=== PATIENT | female | born 1990 | race Caucasian/White ===

== ENCOUNTER 2023-03-17 07:22 | Emergency (ER) | payer BC ==
[2023-03-17] MEDS ORDERED: Sodium Chloride 0.9% 10 ML Syringe FLUSH PRN (07:55)
[2023-03-17] MEDS ORDERED: Sodium Chloride 0.9% 2.5 ML Syringe FLUSH PRN (07:55)
[2023-03-17] MEDS ORDERED: Sodium Chloride 0.9% 1,000 ML IV ONE ×2 (07:55→10:04)
[2023-03-17 08:19] LABS: BASOPHILS ABSOLUTE AUTO 0.07 K/uL (0.00-0.20); BASOPHILS PERCENT AUTO 0.5 % (0.0-1.0); EOSINOPHILS ABSOLUTE AUTO 0.59 K/uL (0.00-0.45); EOSINOPHILS PERCENT AUTO 3.9 % (0.0-6.0); HEMATOCRIT 36.5 % (37.0-47.0); HEMOGLOBIN 12.2 g/dL (12.0-16.0); IMMATURE GRAN ABSOLUTE AUTO 0.09 K/uL (0.00-0.05); IMMATURE GRAN PERCENT AUTO 0.6 % (0.0-0.4); LYMPHOCYTES ABSOLUTE AUTO 2.51 K/uL (1.00-4.80); LYMPHOCYTES PERCENT AUTO 16.6 % (24.0-44.0); MEAN CORPUSCULAR HEMOGLOBIN 29.3 pg (28.0-32.0); MEAN CORPUSCULAR HGB CONC 33.4 g/dL (32.0-36.0); MEAN CORPUSCULAR VOLUME 87.5 fL (83.0-99.0); MEAN PLATELET VOLUME 10.9 fL (9.4-12.3); MONOCYTES ABSOLUTE AUTO 0.96 K/uL (0.00-0.80); MONOCYTES PERCENT AUTO 6.3 % (0.0-8.0); NEUTROPHILS ABSOLUTE AUTO 10.94 K/uL (1.80-7.70); NEUTROPHILS PERCENT AUTO 72.1 % (41.0-71.0); PLATELET COUNT,PLT 269 K/uL (150-400); RED BLOOD CELL COUNT 4.17 M/uL (4.10-5.30); WHITE BLOOD CELL COUNT,WBC 15.16 K/uL (3.9-11.3)
[2023-03-17 08:42] LABS: A/G RATIO 0.5 (0.9-1.6); ALBUMIN 2.3 g/dL (3.4-5.0); BILIRUBIN TOTAL 0.3 mg/dL (0.2-1.0); CARBON DIOXIDE,CO2 20.4 mmol/L (21.0-32.0); CREATININE 0.6 mg/dL (0.6-1.0); EST CRCL DRUG DOSING (CG) 126.01 mL/min; MAGNESIUM 1.2 mg/dL (1.8-2.4); POTASSIUM,K 3.7 mmol/L (3.5-5.1); PROTEIN TOTAL,TP 6.7 g/dL (6.4-8.2)
[2023-03-17 08:59] LABS: CORONAVIRUS COVID-19 NAA NEGATIVE (NEGATIVE); INFLUENZA A NAA NEGATIVE (NEGATIVE); INFLUENZA B NAA NEGATIVE (NEGATIVE)
== END 2023-03-17 11:40 | disposition home or self-care (01) ==
LOC: MW.ED 07:22
DX: O99.283 Endocrine, nutritional and metabolic diseases complicating pregnancy, third trimester (principal); O47.00 False labor before 37 completed weeks of gestation, unspecified trimester; O99.113 Other diseases of the blood and blood-forming organs and certain disorders involving the immune mechanism complicating pregnancy, third trimester; E86.0 Dehydration; Z79.899 Other long term (current) drug therapy; O99.613 Diseases of the digestive system complicating pregnancy, third trimester; K52.9 Noninfective gastroenteritis and colitis, unspecified; D72.829 Elevated white blood cell count, unspecified; Z3A.37 37 weeks gestation of pregnancy; Z20.822 Contact with and (suspected) exposure to COVID-19
CPT/HCPCS: 0240U; 36415; 59025; 80053; 83690; 83735; 85025; 87045; 87046; 87328; 87329; 87449; 87899; 96360; 96361; 99283; 99284-25; J3490; J7030

== ENCOUNTER 2023-04-07 05:08 | Inpatient (IN) | payer BC ==
[2023-04-07] MEDS ORDERED: Lidocaine 1% 50 ML MDV INJECT PRN (05:58)
[2023-04-07] MEDS ORDERED: Nalbuphine 10 MG/0.5 ML Syringe IVPUSH PRN (05:58)
[2023-04-07] MEDS ORDERED: Sodium Chloride 0.9% 10 ML Syringe FLUSH PRN (05:58)
[2023-04-07] MEDS ORDERED: Carboprost Tromethamine 250 MCG/1 mL Vial IM PRN (05:58)
[2023-04-07] MEDS ORDERED: Sodium Chloride 0.9% 20 ML SDV IV PRN (05:58)
[2023-04-07] MEDS ORDERED: Tranexamic Acid IN NACL,ISO-OS 1,000 MG in Premix Bag 1 BAG IV PRN ×2 (05:58)
[2023-04-07] MEDS ORDERED: Sodium Chloride 0.9% 2.5 ML Syringe FLUSH PRN (05:58)
[2023-04-07] MEDS ORDERED: Misoprostol 200 MCG Tab PO PRN (05:58)
[2023-04-07] MEDS ORDERED: Methylergonovine 0.2 MG/1 ML Amp IM PRN ×2 (05:58→18:34)
[2023-04-07] MEDS ORDERED: Water For Irrigation,Sterile 1,000 ML Container IRR PRN (05:58)
[2023-04-07] MEDS ORDERED: Ondansetron 4 MG/2 ML SDV IVPUSH PRN ×4 (05:58→18:35)
[2023-04-07] MEDS ORDERED: Oxytocin/0.9 % Sodium Chloride 30 UNIT/500 ML BAG IV SCH ×3 (06:00→18:45)
[2023-04-07 06:18] LABS: HEMATOCRIT 36.4 % (37.0-47.0); HEMOGLOBIN 12.1 g/dL (12.0-16.0); MEAN CORPUSCULAR HEMOGLOBIN 28.1 pg (28.0-32.0); MEAN CORPUSCULAR HGB CONC 33.2 g/dL (32.0-36.0); MEAN CORPUSCULAR VOLUME 84.7 fL (83.0-99.0); MEAN PLATELET VOLUME 11.1 fL (9.4-12.3); PLATELET COUNT,PLT 298 K/uL (150-400); WHITE BLOOD CELL COUNT,WBC 16.25 K/uL (3.9-11.3)
[2023-04-07] MEDS: Lactated Ringers 1,000 ML IV SCH ×3 (06:20→15:20)
[2023-04-07] MEDS ORDERED: Ropivacaine HCl/PF 200 ML ONE (06:55)
[2023-04-07] MEDS ORDERED: Phenylephrine HCl 0.5 MG/5 ML AMP ONE ×3 (06:56→17:53)
[2023-04-07] MEDS ORDERED: dexmedeTOMIDine HCl 200 MCG/2 ML SDV ONE ×2 (06:56→17:34)
[2023-04-07] MEDS ORDERED: ePHEDrine 50 MG/ML SDV IVPUSH PRN ×3 (08:08→18:35)
[2023-04-07] MEDS ORDERED: Phenylephrine HCl 0.5 MG/5 ML AMP IVPUSH PRN (08:08)
[2023-04-07] MEDS ORDERED: Ropivacaine HCl/PF 400 MG in Premix Bag 1 BAG EPIDUR SCH (08:15)
[2023-04-07] MEDS ORDERED: Citric Acid/Sodium Citrate Solution 30 ML Cup ONE (12:22)
[2023-04-07] MEDS ORDERED: Citric Acid/Sodium Citrate Solution 30 ML Cup PO ONE (14:16)
[2023-04-07] MEDS ORDERED: Acetaminophen 500 MG Tab PO ONE (15:26)
[2023-04-07] MEDS ORDERED: fentaNYL 100 MCG/2 ML SDV ONE (17:14)
[2023-04-07] MEDS ORDERED: Ondansetron 4 MG/2 ML SDV ONE (17:32)
[2023-04-07] MEDS ORDERED: Ropivacaine 0.5% 5 MG/ML 30 ML SDV ONE (17:32)
[2023-04-07] MEDS ORDERED: Ketorolac 30 MG/ML SDV ONE (17:33)
[2023-04-07] MEDS ORDERED: Oxytocin 10 Units/1 ML SDV ONE ×4 (17:33→17:56)
[2023-04-07] MEDS ORDERED: Bupivacaine 0.5% 10 ML SDV ONE (17:33)
[2023-04-07] MEDS ORDERED: Tranexamic Acid 1,000 MG/10 ML Vial ONE ×2 (17:33→17:49)
[2023-04-07] MEDS ORDERED: Azithromycin 500 MG Vial ONE (17:33)
[2023-04-07] MEDS ORDERED: Water For Injection, Sterile 20 ML ONE (17:34)
[2023-04-07] MEDS ORDERED: ceFAZolin 1 GM Vial ONE (17:37)
[2023-04-07] MEDS ORDERED: Dexamethasone 4 MG/ML 5 ML MDV ONE (17:40)
[2023-04-07] MEDS ORDERED: Calcium Chloride 10% 1 GM/10 ML Syringe ONE (17:49)
[2023-04-07] MEDS ORDERED: Morphine PF 10 MG/10 ML SDV ONE (17:49)
[2023-04-07] MEDS ORDERED: Methylergonovine 0.2 MG/1 ML Amp ONE (17:51)
[2023-04-07] MEDS ORDERED: Lanolin 100% Cream 7 GM Tube TOP PRN (18:34)
[2023-04-07] MEDS ORDERED: diphenhydrAMINE 50 MG/ML SDV IVPUSH PRN ×2 (18:34→18:35)
[2023-04-07] MEDS ORDERED: Oxytocin 10 Units/1 ML SDV IM PRN (18:34)
[2023-04-07] MEDS ORDERED: Misoprostol 200 MCG Tab RECTAL PRN (18:34)
[2023-04-07] MEDS ORDERED: Ibuprofen 800 MG Tab PO PRN (18:34)
[2023-04-07] MEDS ORDERED: Bisacodyl 10 MG Supp RECTAL PRN (18:34)
[2023-04-07] MEDS ORDERED: fentaNYL 50 MCG/ML SDV IVPUSH PRN (18:35)
[2023-04-07] MEDS ORDERED: Metoclopramide 10 MG/2 ML SDV IVPUSH PRN (18:35)
[2023-04-07] MEDS ORDERED: droPERidol 5 MG/2 ML SDV IVPUSH PRN (18:35)
[2023-04-07] MEDS ORDERED: Morphine 2 MG/ML SYRINGE IVPUSH PRN (18:35)
[2023-04-07] MEDS ORDERED: Acetaminophen/oxyCODONE 325-5 MG Tab PO PRN (18:35)
[2023-04-07] MEDS ORDERED: Albuterol 0.083% 2.5 MG/3 ML Neb Soln NEB PRN (18:35)
[2023-04-07] MEDS ORDERED: fentaNYL 100 MCG/2 ML SDV IVPUSH PRN (18:35)
[2023-04-07] MEDS ORDERED: HYDROmorphone 1 MG/ML Syringe IVPUSH PRN (18:35)
[2023-04-07] MEDS ORDERED: Naloxone 0.4 MG/ML SDV IVPUSH PRN (18:35)
[2023-04-07] MEDS ORDERED: oxyCODONE 5 MG Tab PO PRN (18:41)
[2023-04-07] MEDS ORDERED: Acetaminophen 500 MG Tab PO PRN (18:41)
[2023-04-07] MEDS ORDERED: Lactated Ringers 1,000 ML IV SCH (18:45)
[2023-04-07 18:50] LABS: PH,UMBILICAL ARTERIAL 7.161 (7.18-7.38); PH,UMBILICAL VENOUS 7.209 (7.25-7.45)
[2023-04-07] MEDS ORDERED: Acetaminophen 1,000 MG in Premix Bag 1 BAG IV SCH (19:30)
[2023-04-07] MEDS: Docusate Sodium 100 MG Cap PO SCH (21:00)
[2023-04-08] MEDS: Ketorolac 30 MG/ML SDV IVPUSH SCH ×4 (00:43→22:42)
[2023-04-08 06:44] LABS: HEMATOCRIT 32.4 % (37.0-47.0); HEMOGLOBIN 10.6 g/dL (12.0-16.0)
[2023-04-08 09:52] LABS: CARBON DIOXIDE,CO2 17.6 mmol/L (21.0-32.0); EST CRCL DRUG DOSING (CG) 72.68 mL/min; POTASSIUM,K 4.2 mmol/L (3.5-5.1)
[2023-04-08] MEDS ORDERED: Acetaminophen 1,000 MG in Premix Bag 1 BAG IV SCH (12:00)
[2023-04-08] MEDS: Docusate Sodium 100 MG Cap PO SCH ×2 (16:25→22:42)
[2023-04-08] MEDS: Escitalopram 10 MG Tab PO SCH (16:30)
[2023-04-08] MEDS: Levothyroxine 150 MCG Tab PO SCH (16:30)
[2023-04-08] MEDS: Acetaminophen 1,000 MG in Premix Bag 1 BAG IV SCH (19:01)
[2023-04-09] MEDS: Acetaminophen 1,000 MG in Premix Bag 1 BAG IV SCH ×2 (00:35→06:21)
[2023-04-09] MEDS ORDERED: Ibuprofen 800 MG Tab PO PRN (05:00)
[2023-04-09] MEDS: Escitalopram 10 MG Tab PO SCH (09:41)
[2023-04-09] MEDS: Docusate Sodium 100 MG Cap PO SCH (09:41)
[2023-04-09] MEDS: Levothyroxine 150 MCG Tab PO SCH (09:42)
[2023-04-09] MEDS ORDERED: Acetaminophen 500 MG Tab PO PRN (12:00)
== END 2023-04-09 14:10 | disposition home or self-care (01) | DRG 540 ==
LOC: MW.OBCHECK 05:08 → MW.OB 05:09 → MW.OBCHECK 05:58 → OBSVTOIN 17:47 → MW.OB 22:55
PROVIDERS: ADMIT Obstetrics & Gynecology; ATTEND Obstetrics & Gynecology
PROC: 10D00Z1 Extraction of Products of Conception, Low, Open Approach (ICD-10-PCS; principal; 2023-04-07 17:34)
DX: O99.284 Endocrine, nutritional and metabolic diseases complicating childbirth (principal); E89.0 Postprocedural hypothyroidism; O99.344 Other mental disorders complicating childbirth; F41.9 Anxiety disorder, unspecified; O62.1 Secondary uterine inertia; Z85.850 Personal history of malignant neoplasm of thyroid; Z3A.39 39 weeks gestation of pregnancy; Z37.0 Single live birth
CPT/HCPCS: 01967; 36415; 51702; 59025; 80048; 82803; 84112; 85014; 85018; 85027; 86592; 86850; 86900; 86901; A9270-GY; J0131; J0456; J0665; J0690; J1100; J1885; J2210; J2274; J2371; J2405; J2590; J2795; J3010; J3490; J7120